=== PATIENT | male | born 1950 | race Caucasian/White ===

== ENCOUNTER → 2023-10-24 15:12 | Outpatient (REF) | payer MEDICARE, BC, SELFPAY | LOC: HWRAD 15:12 | PROVIDERS: ATTENDING PHYSICIAN Internal Medicine | DX: R51.9 Headache, unspecified (principal) | CPT/HCPCS: 70450 ==

== ENCOUNTER → 2023-11-16 15:36 | Outpatient (REF) | payer MEDICARE, BC, SELFPAY ==
[2023-11-16 16:25] LABS: Platelet Count 317 10^3/uL (130-400)
[2023-11-16 16:49] LABS: Erythrocyte Sed Rate 24 mm/hour (0-20)
== END ==
LOC: REG 15:36
PROVIDERS: ATTENDING PHYSICIAN Ophthalmology; FAMILY PHYSICIAN Internal Medicine
DX: M31.5 Giant cell arteritis with polymyalgia rheumatica (principal)
CPT/HCPCS: 36415; 85049; 85652; 86140

== ENCOUNTER 2023-12-04 07:24 | Emergency (ER) | payer MEDICARE, BC, SELFPAY ==
[2023-12-04 07:30] VITALS: BP 155/68
--- NOTE | 2023-12-04 08:33 | ED.GENMED ---
History of Present Illness
General
Chief Complaint: Cold/Flu/URI Symptoms
Time Seen by Provider: 12/04/23 08:28
Travel History
Have you had any contact with someone who has COVID-19?: No
Do you have any symptoms of coronavirus? Fever > 100 degrees, chills, cough, shortness of breath, sore throat, loss of taste or smell, muscle aches, or headache?: Yes
Symptoms:: fever, cough
History of Present Illness
History of Present Illness:
HPI: The patient presents with cough, URI symptoms, the started about 6 days ago while in [place]. He was with his plastic surgeon friend who put him on Cipro. There is been no improvement. He did have a fever recently to 101 �F.
EXAM:
GENERAL: Well appearing in no distress, frequent wet sounding cough
HEENT: Moist oral mucosa
CARDIOVASCULAR: No murmurs, normal heart rate, regular rhythm, No chest wall tenderness
PULMONARY: No respiratory distress, breath sounds are clear and equal but there may be some very faint rales at the left base
ABDOMEN: Soft with no peritoneal signs, no tenderness
NEUROLOGIC: Excellent strength all extremities, no coordination deficits
PSYCHIATRIC: Appropriate mental status, normal insight and judgement
EXTREMITIES: Nontender, no edema, moves all extremities equally
SKIN: No rash, no lesions
TIME OF INITIAL ENCOUNTER: 8:40 AM
NUMBER AND COMPLEXITY OF PROBLEMS ADDRESSED AT THE ENCOUNTER
� Chronic conditions affecting care: Tonsillar cancer, hyperlipidemia, hiatal hernia, thyroid disease
� Acute Exacerbation and/or Progression of Chronic Illness: This is an acute problem
� Differential Diagnosis includes: Viral syndrome, bronchitis, COVID/flu, pneumonia
AMOUNT AND/OR COMPLEXITY OF DATA TO BE REVIEWED AND ANALYZED
� I performed an independent evaluation of and my interpretation is:
EKG:
CT:
X-rays: I personally viewed the chest x-ray and see no acute abnormality
Laboratory Studies: COVID and flu testing are both negative
Other:
� Review of other/old records: The patient had endoscopy in 2020 that showed a healed ulcer in the prepyloric region; in July 2023 the patient has CBC that was unremarkable
� Clinical information was obtained by an independent historian: None needed
� Prescriptions/Medications Considered but not given:
� Further testing considered but not performed:
RISK OF COMPLICATIONS AND/OR MORBIDITY OR MORTALITY OF PATIENT MANAGEMENT
� Social determinants of health affecting care: Lives at home
� Discussion with other providers:
� Escalation of care including admission/observation vs risk of discharge considered: The patient states he has no shortness of breath currently. He does have a prominent cough. He is borderline febrile here. Will check chest
x-ray. Chest x-ray is clear however the patient has been having symptoms for about a week and is now febrile. Given his advanced age we will add azithromycin. He is well-appearing at time of discharge.
Past History
Past History
ED Past Medical History: Cancer (tonsiler CA), Hypercholesterolemia, Hypothyroidism and Other (Hiatel hernia, Gastritis, C-diff)
ED Past Surgical History: Other (Tonsil CA, Lymphnode surg of the neck, Thyroidecomy,)
Social History
Tobacco: Former smoker
Alcohol: Occasional
Drug: None
Personal:
Living: with family
Employment: Employed
Family History
Family History: Other
Phy Exam
Physical Exam
Physical Exam:
See HPI
Course
Orders/Labs/Results
Orders:
Orders
12/04/23 08:33
CR Chest - 2 Views Urgent
Comment:
Reason For Exam: cough sob fever
12/04/23 08:38
COVID-19 Antigen Urgent
Source: Nasal Swab
Influenza A+B Rapid Molecular Urgent
ANNEMARIE Source: Nasal Swab
Specimen Description:
12/04/23 08:43
Acetaminophen [Tylenol] 1,000 mg PO NOW STA
12/04/23 10:50
Azithromycin [Zithromax] 500 mg PO NOW STA
Vital Signs
Initial and Last Documented VS:
Initial Vital Signs
Temp Pulse BP Pulse Ox
100.4 F H 90 155/68 92
12/04/23 07:30 12/04/23 07:30 12/04/23 07:30 12/04/23 07:30
Last Documented Vital Signs
Temp Pulse BP Pulse Ox
100.4 F H 90 155/68 92
12/04/23 07:30 12/04/23 07:30 12/04/23 07:30 12/04/23 07:30
*Critical Care Note
Total Time (30-74mins, 75-104mins- exclusive of procedures): Not Applicable
ED Attending Note
-
Portions of this chart may have been created with voice recognition software.� Occasional wrong word or��sound alike� substitutions may have occurred due to the inherent limitations of voice recognition software.
Discharge Plan
Departure
Patient Disposition: Home (Routine Discharge)
Date of Disposition: 12/04/23
Time of Disposition: 10:48
Patient with high blood pressure during this ER visit?: Yes
Discharge Problem:
Acute bronchitis
Instructions: Acute Bronchitis, Adult (DC)
Prescriptions:
New
azithromycin 500 mg tablet
500 mg PO DAILY 2 Days Qty: 2 0RF
No Action
levothyroxine 112 MCG tablet
125 mcg PO DAILY
coenzyme Q10 100 MG capsule
400 mg PO DAILY
cholecalciferol (vitamin D3) [Vitamin D3] 2,000 UNIT capsule
4,000 unit PO DAILY
folic acid 0.4 MG tablet
0.4 mg PO DAILY
saw palmetto 160 MG capsule
160 mg PO DAILY
lactobacillus combination no.4 [Probiotic] 1 EACH capsule
1 ea PO DAILY
esomeprazole magnesium [Nexium] 40 MG capsule,delayed release(DR/EC)
40 mg PO HS
ezetimibe-simvastatin 1 TABLET tablet
1 tab PO DAILY
ascorbic acid-ascorbate sodium 500 MG wafer
500 mg PO PRN PRN (Reason: feeling like flu)
Referrals:
Lukasz Hernadez, DO [Family Provider] -
Activity Restrictions/Additional Instructions:
To me, the chest x-ray appears unchanged compared to prior. However given the fact that you have an associated fever, will try azithromycin. Return here if worse.
Interventions
Interventions:
*Risk Screen - Suicide Last Done: 12/04/23 11:06
*General Assessment Last Done: 12/04/23 11:06
*Neglect/Abuse Screening Last Done: 12/04/23 11:06
ED- Fall Risk Assessment Last Done: 12/04/23 11:06
*ED COVID-19 Vaccine History Last Done: 12/04/23 11:06
*Nursing Disposition Last Done: 12/04/23 11:06
ED- Pulmonary Assessment Last Done: 12/04/23 11:06
Discharge Date and Time
Discharge Date/Time: 12/04/23 11:07
Print Language: BENINESE
[2023-12-04] MEDS: TYLENOL 1000 MG PO (08:49)
[2023-12-04 08:59] LABS: COVID-19 Antigen Negative (Negative)
[2023-12-04] MEDS: ZITHROMAX 500 MG PO (11:01)
== END 2023-12-04 11:07 | disposition home or self-care (01) ==
LOC: EMR 07:24
PROVIDERS: EMERGENCY PHYSICIAN Emergency Medicine; FAMILY PHYSICIAN Internal Medicine
DX: J20.9 Acute bronchitis, unspecified (principal); E78.00 Pure hypercholesterolemia, unspecified; E03.9 Hypothyroidism, unspecified; K44.9 Diaphragmatic hernia without obstruction or gangrene; Z85.818 Personal history of malignant neoplasm of other sites of lip, oral cavity, and pharynx; Z87.19 Personal history of other diseases of the digestive system; Z87.891 Personal history of nicotine dependence
CPT/HCPCS: 99283; 71046; 87502; 87811

== ENCOUNTER → 2024-03-11 11:25 | Outpatient (REF) | payer MEDICARE, BC, SELFPAY ==
[2024-03-11 12:29] LABS: % Basophils 0.9 % (0-2); % Eosinophils 3.1 % (0-6); % Immature Granulocytes 0.9 % (0-0.5); % Lymphocytes 32.4 % (20.5-51.1); % Monocytes 11.7 % (1.7-9.3); Absolute Basophils 0.1 10^3/uL (0-0.2); Absolute Eosinophils 0.2 10^3/uL (0-0.7); Absolute Immature Granulocytes 0.1 10^3/uL (0-0.05); Absolute Lymphocytes 1.9 10^3/uL (1.2-3.4); Absolute Monocytes 0.7 10^3/uL (0.1-0.6); Absolute Neutrophils 2.9 10^3/uL (1.4-6.5); Hemoglobin 14.6 g/dL (13.0-18.0); Mean Corpuscular Hgb 31.3 pg (27.0-31.0); Mean Corpuscular Volume 92.3 fL (80.0-94.0); Mean Platelet Volume 9.6 fL (7.4-10.4); Nucleated Red Blood Cells % 0 % (-); Platelet Count 280 10^3/uL (130-400); Red Blood Cell Count 4.66 10^6/uL (4.70-6.10); Red Cell Dist. Width 14.2 % (11.5-14.5); White Blood Cell Count 5.7 10^3/uL (4.8-10.8)
[2024-03-11 13:00] LABS: Monotest Negative (Negative)
[2024-03-11 14:11] LABS: PSA, Total - Screen 1.81 ng/ml (0.0-4.0); TSH 0.18 uIU/ml (0.47-4.68)
[2024-03-11 15:18] LABS: ALT (SGPT) 24 U/L (0-50); AST (SGOT) 30 U/L (17-59); Albumin 4.4 g/dl (3.5-5.0); Alkaline Phosphatase 69 U/L (38-126); Blood Urea Nitrogen 19 mg/dl (9-20); Calcium 9.4 mg/dl (8.4-10.2); Carbon Dioxide 29 mmol/L (22-30); Chloride 102 mmol/L (98-107); Glucose 90 mg/dl (70-99); HDL Cholesterol 75 mg/dl; LDL Cholesterol, Calculated 80 mg/dl; Potassium 4.7 mmol/L (3.5-5.1); Sodium 137 mmol/L (135-145); Total Bilirubin 1.5 mg/dl (0.2-1.3); Total Cholesterol 170 mg/dl (50-199); Total Protein 6.9 g/dl (6.3-8.2); Triglyceride 77 mg/dl (10-149); Very Low Density Lipoprotein 15 mg/dl (0-30); eGFR > 60.00
== END ==
LOC: REG 11:25
PROVIDERS: ATTENDING PHYSICIAN Internal Medicine
DX: E78.2 Mixed hyperlipidemia (principal); K21.9 Gastro-esophageal reflux disease without esophagitis; Z12.5 Encounter for screening for malignant neoplasm of prostate; E89.0 Postprocedural hypothyroidism; J02.9 Acute pharyngitis, unspecified
CPT/HCPCS: 36415; 80053; 80061; 84443; 85025; 86308; G0103

== ENCOUNTER → 2024-06-06 08:39 | Outpatient (REF) | payer MEDICARE, BC, SELFPAY ==
[2024-06-06 11:06] LABS: Creatine Phosphokinase 88 U/L (55-170)
[2024-06-06 11:34] LABS: Free T4 1.39 ng/dl (0.78-2.19)
[2024-06-06 11:36] LABS: Erythrocyte Sed Rate 13 mm/hour (0-20)
[2024-06-06 11:48] LABS: TSH 0.56 uIU/ml (0.47-4.68)
== END ==
LOC: REG 08:39
PROVIDERS: ATTENDING PHYSICIAN Internal Medicine
DX: M25.9 Joint disorder, unspecified (principal)
CPT/HCPCS: 36415; 82550; 84439; 84443; 85652; 86140; 86430; 86618

== ENCOUNTER → 2024-08-29 09:09 | Outpatient (REF) | payer MEDICARE, BC, SELFPAY ==
[2024-08-29 10:14] LABS: Urine Albumin Trace (Neg - Trace); Urine Bilirubin Negative (Negative); Urine Character Clear (Clear); Urine Color Yellow; Urine Glucose Negative (Negative); Urine Ketone Negative (Negative); Urine Leukocyte Negative (Negative); Urine Nitrite Negative (Negative); Urine Occult Blood Trace (Negative); Urine Urobilinogen Negative (Neg - 1+)
[2024-08-29 10:33] LABS: ALT (SGPT) 22 U/L (0-50); AST (SGOT) 26 U/L (17-59); Albumin 4.2 g/dl (3.5-5.0); Alkaline Phosphatase 60 U/L (38-126); Blood Urea Nitrogen 20 mg/dl (9-20); Carbon Dioxide 32 mmol/L (22-30); Chloride 102 mmol/L (98-107); Glucose 96 mg/dl (70-99); HDL Cholesterol 94 mg/dl; LDL Cholesterol, Calculated 76 mg/dl; Potassium 4.3 mmol/L (3.5-5.1); Sodium 140 mmol/L (135-145); Total Bilirubin 1.4 mg/dl (0.2-1.3); Total Cholesterol 183 mg/dl (50-199); Total Protein 6.9 g/dl (6.3-8.2); Triglyceride 66 mg/dl (10-149); Uric Acid 4.4 mg/dl (3.5-8.5); Very Low Density Lipoprotein 13 mg/dl (0-30); eGFR > 60.00
[2024-08-29 11:30] LABS: Urine Calcium Oxalate Crystals Seen; Urine Hyaline Cast 0-2 /LPF (0-2); Urine Mucus Few; Urine Red Blood Cell 0-2 /HPF (0-2); Urine Squamous Cell 0-2 /LPF (Few); Urine White Cell 0-2 /HPF (0-5)
[2024-08-29 12:02] LABS: Glycohemoglobin (HgbA1c) 5.4 % (4.0-5.6)
== END ==
LOC: REG 09:09
PROVIDERS: ATTENDING PHYSICIAN Internal Medicine
DX: R73.01 Impaired fasting glucose (principal); Z13.220 Encounter for screening for lipoid disorders; M79.674 Pain in right toe(s); Z12.5 Encounter for screening for malignant neoplasm of prostate; I10 Essential (primary) hypertension
CPT/HCPCS: 36415; 80053; 80061; 81003; 81015; 83036; 84550; G0103

== ENCOUNTER → 2024-09-26 11:08 | Outpatient (REF) | payer MEDICARE, BC, SELFPAY | LOC: RAD 11:08 | PROVIDERS: ATTENDING PHYSICIAN Nurse Practitioner Primary Care; FAMILY PHYSICIAN Internal Medicine | DX: S09.90XA Unspecified injury of head, initial encounter (principal); S06.0X0A Concussion without loss of consciousness, initial encounter; M54.16 Radiculopathy, lumbar region | CPT/HCPCS: 70450; 72110 ==

== ENCOUNTER 2024-11-03 11:01 | Outpatient (RCR) | payer MEDICARE, BC, SELFPAY | END 2024-11-03 23:59 | disposition home or self-care (01) | LOC: RPT 11:01 | PROVIDERS: ATTENDING PHYSICIAN Nurse Practitioner Primary Care; FAMILY PHYSICIAN Internal Medicine | DX: M47.812 Spondylosis without myelopathy or radiculopathy, cervical region (principal); M54.16 Radiculopathy, lumbar region; M51.362 Other intervertebral disc degeneration, lumbar region with discogenic back pain and lower extremity pain; Z73.6 Limitation of activities due to disability; R51.9 Headache, unspecified | CPT/HCPCS: 97110; 97162; 97535 ==

== ENCOUNTER → 2024-11-13 14:09 | Outpatient (REF) | payer MEDICARE, BC, SELFPAY | LOC: HWRAD 14:09 | PROVIDERS: ATTENDING PHYSICIAN Internal Medicine | DX: R91.1 Solitary pulmonary nodule (principal) | CPT/HCPCS: 71250 ==

== ENCOUNTER 2024-11-20 10:00 | Outpatient (RCR) | payer MEDICARE, BC, SELFPAY | END 2024-11-20 23:59 | disposition home or self-care (01) | LOC: RPT 10:00 | PROVIDERS: ATTENDING PHYSICIAN Nurse Practitioner Primary Care; FAMILY PHYSICIAN Internal Medicine | DX: M47.812 Spondylosis without myelopathy or radiculopathy, cervical region (principal); M54.16 Radiculopathy, lumbar region; M51.362 Other intervertebral disc degeneration, lumbar region with discogenic back pain and lower extremity pain; Z73.6 Limitation of activities due to disability; R51.9 Headache, unspecified | CPT/HCPCS: 97110; 97140 ==

== ENCOUNTER → 2025-05-02 08:18 | Outpatient (REF) | payer MEDICARE, BC, SELFPAY ==
[2025-05-02 10:20] LABS: ALT (SGPT) 19 U/L (0-50); AST (SGOT) 25 U/L (17-59); Albumin 4.3 g/dl (3.5-5.0); Alkaline Phosphatase 63 U/L (38-126); Blood Urea Nitrogen 21 mg/dl (9-20); Calcium 9.2 mg/dl (8.4-10.2); Carbon Dioxide 28 mmol/L (22-30); Chloride 104 mmol/L (98-107); Glucose 98 mg/dl (70-99); Potassium 4.6 mmol/L (3.5-5.1); Sodium 138 mmol/L (135-145); Total Protein 7.0 g/dl (6.3-8.2); eGFR > 60.00
== END ==
LOC: REG 08:18
PROVIDERS: ATTENDING PHYSICIAN Internal Medicine
DX: Z13.9 Encounter for screening, unspecified (principal)
CPT/HCPCS: 36415; 80053

== ENCOUNTER → 2025-06-02 09:55 | Outpatient (REF) | payer MEDICARE, BC, SELFPAY ==
[2025-06-02 11:01] LABS: Urine Character Clear (Clear)
[2025-06-02 11:13] LABS: Glycohemoglobin (HgbA1c) 5.5 % (4.0-5.9)
[2025-06-02 11:21] LABS: ALT (SGPT) 24 U/L (0-50); AST (SGOT) 26 U/L (17-59); Albumin 4.3 g/dl (3.5-5.0); Alkaline Phosphatase 62 U/L (38-126); Blood Urea Nitrogen 16 mg/dl (9-20); Calcium 9.5 mg/dl (8.4-10.2); Carbon Dioxide 29 mmol/L (22-30); Chloride 102 mmol/L (98-107); Glucose 86 mg/dl (70-99); HDL Cholesterol 66 mg/dl; LDL Cholesterol, Calculated 95 mg/dl; Potassium 4.4 mmol/L (3.5-5.1); Sodium 135 mmol/L (135-145); Total Protein 7.2 g/dl (6.3-8.2); Uric Acid 5.3 mg/dl (3.5-8.5); Very Low Density Lipoprotein 15 mg/dl (0-30); eGFR > 60.00
[2025-06-02 12:05] LABS: PSA, Total - Screen 1.80 ng/ml (0.0-4.0); TSH 0.98 uIU/ml (0.47-4.68)
== END ==
LOC: REG 09:55
PROVIDERS: ATTENDING PHYSICIAN Internal Medicine
DX: E03.9 Hypothyroidism, unspecified (principal); Z12.5 Encounter for screening for malignant neoplasm of prostate; I10 Essential (primary) hypertension; R73.01 Impaired fasting glucose; Z13.220 Encounter for screening for lipoid disorders; M79.674 Pain in right toe(s)
CPT/HCPCS: 36415; 80053; 80061; 81003; 81015; 83036; 84439; 84443; 84550; G0103